=== PATIENT | female | born 1970 | race Caucasian/White ===

== ENCOUNTER 2018-06-23 22:45 | Inpatient (IN) | payer OTHER ==
--- NOTE | 2018-06-23 23:38 | PDOC ---
History of Present Illness <Lauren Pavon - Last Filed: 06/24/18 02:33> - General History Source: Patient Exam Limitations: No Limitations - History of Present Illness Travel History: No Initial Comments: 06/23/18 23:33 Best Contact: PCP: Ricky Pmhx: Renal colic Pshx: 1996:ROBERT Allergies: Oxycodone/rash FH:none Social Hx: Cigarettes/ 0 Alcohol/ 0 Drugs/0 LMP: 2000 48-year-old female presents to the emergency department complaining of dysuria, right-sided flank pain described as 4/10 dull intermittent discomfort radiating to the right groin and with independant RLQ abd pain without fever, chills, nausea/vomiting, headache, dizziness, lightheadedness, neck pain, back pains, chest pain, shortness of breath, hematuria. Symptoms started yesterday morning. Patient took Pyridium 100 mg at approximately 15 1700 hrs. this evening with some relief. <Mary Boothe - Last Filed: 06/24/18 06:34> - General Chief Complaint: Pain, Acute Stated Complaint: UTI SYX Time Seen by Provider: 06/23/18 23:08 Past History <Lauren Pavon - Last Filed: 06/24/18 02:33> - Past Medical History Anemia: No Asthma: No Cancer: No Cardiac Disorders: No CVA: No COPD: No CHF: No DVT: No Dementia: No Kidney Stones: Yes - Surgical History Abdominal Surgery: No Appendectomy: No Cardiac Surgery: No Cholecystectomy: No GI Surgery: No - Suicide/Smoking/Psychosocial Hx Smoking History: Never smoked Have you smoked in the past 12 months: No Information on smoking cessation initiated: No Hx Alcohol Use: No Drug/Substance Use Hx: No <Mary Boothe - Last Filed: 06/24/18 06:34> - Past Medical History Allergies/Adverse Reactions: Allergies Allergy/AdvReac Type Severity Reaction Status Date / Time oxycodone Allergy Verified 06/24/18 00:01 Home Medications: Ambulatory Orders Omeprazole 20 mg PO DAILY 06/24/18 Review of Systems - Review of Systems Able to Perform ROS?: Yes Comments:: 06/23/18 23:36 CONSTITUTIONAL: Absent: fever, chills, diaphoresis, generalized weakness, malaise, loss of appetite HEENT: Absent: rhinorrhea, nasal congestion, throat pain, throat swelling, difficulty swallowing, mouth swelling, ear pain, eye pain, visual Changes CARDIOVASCULAR: Absent: chest pain, loss of consciousness, palpitations, irregular heart rate, peripheral edema RESPIRATORY: Absent: cough, shortness of breath, dyspnea with exertion, orthopnea, wheezing, stridor, hemoptysis GASTROINTESTINAL: +RLQ pain Absent: abdominal distension, nausea, vomiting, diarrhea, constipation, melena, hematochezia GENITOURINARY: +dysuria, frequency, urgency, hesitancy,right flank pain Absent: hematuria,genital pain MUSCULOSKELETAL: Absent: myalgia, arthralgia, joint swelling SKIN: Absent: rash, itching, pallor HEMATOLOGIC/IMMUNOLOGIC: Absent: easy bleeding, easy bruising, lymphadenopathy, frequent infections ENDOCRINE: Absent: unexplained weight gain, unexplained weight loss, heat intolerance, cold intolerance NEUROLOGIC: Absent: headache, focal weakness or paresthesias, dizziness, unsteady gait, seizure, mental status changes, bladder or bowel incontinence PSYCHIATRIC: Absent: anxiety, depression, suicidal or homicidal ideation, hallucinations. 06/24/18 01:15 Is the patient limited Tunisian proficient: No <Mary Boothe - Last Filed: 06/24/18 06:34> *Physical Exam - Vital Signs Last Vital Signs Temp Pulse Resp BP Pulse Ox 98.1 F 72 20 114/68 100 06/23/18 22:52 06/23/18 22:52 06/23/18 22:52 06/23/18 22:52 06/23/18 22:52 <Lauren Pavon - Last Filed: 06/24/18 02:33> - Vital Signs Last Vital Signs Temp Pulse Resp BP Pulse Ox 98.1 F 72 20 114/68 100 06/23/18 22:52 06/23/18 22:52 06/23/18 22:52 06/23/18 22:52 06/23/18 22:52 - Physical Exam Comments: 06/23/18 23:36 GENERAL: Well developed, well nourished. Awake and alert. No acute distress. HEENT: Normocephalic, atraumatic. PERRLA, EOMI. No conjunctival pallor. Sclera are non- icteric. Moist mucous membranes. Oropharynx is clear. NECK: Supple. Full ROM. No JVD. Carotid pulses 2+ and symmetric, without bruits. No thyromegaly. No lymphadenopathy. CARDIOVASCULAR: Regular rate and rhythm. No murmurs, rubs, or gallops. Distal pulses are 2+ and symmetric. PULMONARY: No evidence of respiratory distress. Lungs clear to auscultation bilaterally. No wheezing, rales or rhonchi. ABDOMINAL: +RLQ pain on palp Soft.. Non-distended. No rebound or guarding. No organomegaly. Normoactive bowel sounds. MUSCULOSKELETAL Normal range of motion at all joints. No bony deformities or tenderness. No CVA tenderness. EXTREMITIES: No cyanosis. No clubbing. No edema. No calf tenderness. SKIN: Warm and dry. Normal capillary refill. No rashes. No jaundice. NEUROLOGICAL: Alert, awake, appropriate. Cranial nerves 2-12 intact. No deficits to light touch and temperature in face, upper extremities and lower extremities. No motor deficits in the in face, upper extremities and lower extremities. Normoreflexic in the upper and lower extremities. Normal speech. Toes are down- going bilaterally. Gait is normal without ataxia. PSYCHIATRIC: Cooperative. Good eye contact. Appropriate mood and affect. 06/24/18 01:15 <Mary Boothe - Last Filed: 06/24/18 06:34> Moderate Sedation - Procedure Monitoring Vital Signs: Procedure Monitoring Vital Signs Temperature 98.1 F 06/23/18 22:52 Pulse Rate 72 06/23/18 22:52 Respiratory Rate 20 06/23/18 22:52 Blood Pressure 114/68 06/23/18 22:52 O2 Sat by Pulse Oximetry (%) 100 06/23/18 22:52 <Lauren Pavon - Last Filed: 06/24/18 02:33> - Procedure Monitoring Vital Signs: Procedure Monitoring Vital Signs Temperature 98.1 F 06/23/18 22:52 Pulse Rate 72 06/23/18 22:52 Respiratory Rate 20 06/23/18 22:52 Blood Pressure 114/68 06/23/18 22:52 O2 Sat by Pulse Oximetry (%) 100 06/23/18 22:52 <Mary Boothe - Last Filed: 06/24/18 06:34> ED Treatment Course - LABORATORY CBC & Chemistry Diagram: 06/24/18 01:23 06/24/18 01:23 - ADDITIONAL ORDERS Additional order review: Laboratory Results 06/24/18 06/23/18 01:23 11:40 Sodium 141 Potassium 4.3 Chloride 108 H Carbon Dioxide 30 Anion Gap 3 L BUN 17 Creatinine 0.9 Creat Clearance w eGFR > 60 Random Glucose 110 H Calcium 9.3 Total Bilirubin 0.8 AST 19 ALT 17 Alkaline Phosphatase 91 Total Protein 7.2 Albumin 3.9 Urine Color Monet Urine Appearance Clear Urine pH 5.0 Ur Specific [place] 1.014 Urine Protein Negative Urine Glucose (UA) Negative Urine Ketones Negative Urine Blood Negative Urine Nitrite Positive Urine Bilirubin Negative Urine Urobilinogen 4.0 e.u/dl H Ur Leukocyte Esterase Negative Urine WBC (Auto) 2 Urine RBC (Auto) <1 Ur Epithelial Cells Rare Urine Bacteria Moderate Urine Mucus Rare Urine HCG, Qual Negative 06/24/18 01:23 RBC 4.06 MCV 96.3 H MCHC 34.9 RDW 13.3 MPV 8.5 Neutrophils % 41.2 L Lymphocytes % 47.3 H Monocytes % 8.9 Eosinophils % 2.1 Basophils % 0.5 <Lauren Pavon - Last Filed: 06/24/18 02:33> - LABORATORY CBC & Chemistry Diagram: 06/24/18 01:23 06/24/18 01:23 - RADIOLOGY Radiograph Interpretation: 06/24/18 01:15 CAT scan abdomen and pelvis with IV contrast demonstrates some high density in the distal appendiceal lumen suggesting retained gastrointestinal contrast from previous imaging study or possibly appendicoliths The appendix is not distended , thickened or complaints. <Mary Boothe - Last Filed: 06/24/18 06:34> Progress Note - Progress Note Progress Note: 0006hrs: Called Dr. Greco /gen surg filtration supervisor [phone] 0633hrs: Spoke to Dr. Lee <Mary Boothe - Last Filed: 06/24/18 06:34> Medical Decision Making - Medical Decision Making 06/24/18 02:33 Patient Name: ANNE OCHOA THIS IS A PRELIMINARY REPORT FROM [facility] DATE OF SERVICE: 2018-06-24 00:37:44 IMAGES: [id number] EXAM: CT abdomen and pelvis without contrast HISTORY: Right sided flank pain COMPARISON: None. FINDINGS: Abdomen Liver: Normal Spleen: Normal Pancreas: Normal CONFIDENTIALITY NOTICE: This information is intended only for the use of the recipient(s) named above. If you are not the intended recipient, or a person responsible for delivering it to the intended recipient, you are hereby notified that any disclosure, copying, distribution or use of any of the information contained in or attached to this transmission is STRICTLY PROHIBITED. If you have received this transmission in error, please immediately notify [facility] Operator and destroy the original transmission and its attachments without saving them in any manner [address] [facility] [address] [place] [address] Phone: [phone] ([phone]) Fax: Email: [email or web address] Web: [email or web address] Patient Information: : 1970 Order Type: Preliminary Name: GABRIELA RODRÍGUEZ Sex: F Study Description: CT ABDOMEN AND PELVIS Modality: CT Location: [facility] Referring Physician: BEAU ORDONEZ Gallbladder: Normal Stomach: Normal Small bowel: Normal Large bowel: Normal Appendix: There is some high density in the distal appendiceal lumen suggesting retained gastrointestinal contrast from previous imaging study, or possibly appendicoliths. The appendix is not distended, thickening, or inflamed Adrenals:Normal Kidneys: Normal Vascular: Normal Lymphatic: Normal Peritoneal: No free peritoneal air or fluid Pelvis: Uterus: normal Rectum: Normal Bladder: Normal The inferior thorax: Normal General: Skeletal: Normal Abdominal wall: Normal IMPRESSION: No acute findings. Hypodensity in the appendix suggests retained gastrointestinal contrast, or a series of appendicoliths. The distal appendix is not distended thickened or inflamed <Lauren Pavon - Last Filed: 06/24/18 02:33> *DC/Admit/Observation/Transfer <Lauren Pavon - Last Filed: 06/24/18 02:33> - Discharge Dispostion Decision to Admit order: Yes <Mary Boothe - Last Filed: 06/24/18 06:34> Diagnosis at time of Disposition: Appendicolith UTI (urinary tract infection) Qualifiers: Urinary tract infection type: acute cystitis Hematuria presence: without hematuria Qualified Code(s): N30.00 - Acute cystitis without hematuria - Discharge Dispostion Condition at time of disposition: Stable
[2018-06-23 23:59] LABS: HCG,QUALITATIVE URINE Negative
[2018-06-24 00:19] LABS: URINE APPEARANCE CLEAR; URINE BILIRUBIN NEGATIVE (<2.0 mg/dL); URINE COLOR AMBER; URINE GLUCOSE (UA) NEGATIVE (NEGATIVE); URINE KETONE NEGATIVE (NEGATIVE); URINE LEUK ESTERASE NEGATIVE (NEGATIVE); URINE NITRITE POSITIVE (NEGATIVE); URINE PROTEIN NEGATIVE (NEGATIVE); URINE UROBILINOGEN 4.0 E.U/dl mg/dL (0.2-1.0)
[2018-06-24 00:22] LABS: EPI CELLS RARE /HPF (FEW); URINE BACTERIA MODERATE /hpf (NONE SEEN); URINE MUCUS RARE
[2018-06-24 01:34] LABS: BASO % 0.5 % (0-2.0); EOS % 2.1 % (0-4.5); HEMATOCRIT 39.1 % (32.4-45.2); HEMOGLOBIN 13.7 GM/dL (10.7-15.3); LYMPH % 47.3 % (8-40); MCH 33.6 pg (25.7-33.7); MCHC 34.9 g/dl (32.0-36.0); MEAN CELL VOLUME 96.3 fl (80-96); MEAN PLT VOLUME 8.5 fl (7.5-11.1); MONO % 8.9 % (3.8-10.2); NEUT % 41.2 % (42.8-82.8); PLATELET COUNT 189 K/MM3 (134-434); RBC 4.06 M/mm3 (3.60-5.2); RDW 13.3 % (11.6-15.6); WHITE BLOOD COUNT 5.8 K/mm3 (4.0-10.0)
[2018-06-24 01:55] LABS: ALBUMIN 3.9 g/dl (3.4-5.0); ALK PHOS 91 U/L (45-117); ANION GAP 3 MMOL/L (8-16); BILIRUBIN,TOTAL 0.8 mg/dL (0.2-1); BLOOD UREA NITROGEN 17 mg/dL (7-18); CALCIUM 9.3 mg/dL (8.5-10.1); CHLORIDE 108 mmol/L (98-107); CO2 30 mmol/L (21-32); CREATININE 0.9 mg/dL (0.55-1.3); GLUCOSE,RANDOM 110 mg/dL (74-106); POTASSIUM 4.3 mmol/L (3.5-5.1); SGOT/AST 19 U/L (15-37); SGPT/ALT 17 U/L (13-61); SODIUM 141 mmol/L (136-145); TOT PROT 7.2 g/dl (6.4-8.2)
[2018-06-24] MEDS ORDERED: CEFTRIAXONE 1 GM in DEXTROSE 5%-WATER - 50 ML IVPB ONE (02:34)
[2018-06-24] MEDS ORDERED: CEFTRIAXONE 1 GM/50 ML BAG ONE (02:42)
[2018-06-24 05:38] VITALS: BMI 34.2
[2018-06-24] MEDS ORDERED: ACETAMINOPHEN 325 MG TABLET (FP) PO PRN (07:23)
[2018-06-24] MEDS ORDERED: LACTATED RINGERS SOLUTION 1,000 ML/1,000 ML INFUS.BAG IV SCH (07:30)
--- NOTE | 2018-06-24 07:32 | HP ---
CHIEF COMPLAINT: abdominal pain PCP: none HISTORY OF PRESENT ILLNESS: 48 year old female with a history of GERD and kidney stones presents to the hospital with 3 days of right flank and RLQ abdominal pain. Patient reports that the back pain started Remberto in her right flank and radiated to the front. States that she felt similar pain during her prior kidney stones (last was 2 years ago). States that the RLQ abdominal pain started yesterday, reports it as a stabbing 6/10 in severity that radiates to her right groin and suprapubic region. States that she has not experienced this particular pain in the past. Reports some nausea but no vomiting, fevers, chills, diarrhea, chest pain, shortness of breath. ER course was notable for: (1) CT no contrast notable for possible appendicolith and no kidney stones (2) (3) Recent Travel: denies PAST MEDICAL HISTORY: GERD PAST SURGICAL HISTORY: Hysterectomy when patient was 29 Social History: Smoking: denies Alcohol: denies Drugs: denies Family History: mother with HTN/HLD, father without medical problems Allergies oxycodone Allergy (Verified 06/24/18 00:01) - REACTION: RASH HOME MEDICATIONS: Home Medications Medication Instructions Recorded Omeprazole 40 mg PO DAILY 06/24/18 REVIEW OF SYSTEMS CONSTITUTIONAL: Absent: fever, chills, diaphoresis, generalized weakness, malaise, loss of appetite, weight change HEENT: Absent: rhinorrhea, nasal congestion, throat pain, throat swelling, difficulty swallowing, mouth swelling, ear pain, eye pain, visual changes CARDIOVASCULAR: Absent: chest pain, syncope, palpitations, irregular heart rate, lightheadedness , peripheral edema RESPIRATORY: Absent: cough, shortness of breath, dyspnea with exertion, orthopnea, wheezing, stridor, hemoptysis GASTROINTESTINAL:abdominal pain, nausea Absent: abdominal distension, vomiting, diarrhea, constipation, melena, hematochezia GENITOURINARY: Absent: dysuria, frequency, urgency, hesitancy, hematuria, flank pain, genital pain MUSCULOSKELETAL: Absent: myalgia, arthralgia, joint swelling, back pain, neck pain SKIN: Absent: rash, itching, pallor HEMATOLOGIC/IMMUNOLOGIC: Absent: easy bleeding, easy bruising, lymphadenopathy, frequent infections ENDOCRINE: Absent: unexplained weight gain, unexplained weight loss, heat intolerance, cold intolerance NEUROLOGIC: Absent: headache, focal weakness or paresthesias, dizziness, unsteady gait, seizure, mental status changes, bladder or bowel incontinence PSYCHIATRIC: Absent: anxiety, depression, suicidal or homicidal ideation, hallucinations. PHYSICAL EXAMINATION Vital Signs - 24 hr 06/23/18 06/24/18 06/24/18 22:52 01:12 02:53 Temperature 98.1 F 97.9 F Pulse Rate 72 70 Respiratory 20 20 Rate Blood Pressure 114/68 126/65 O2 Sat by Pulse 100 100 Oximetry (%) GENERAL: A&Ox3, no acute distress EYES: PERRLA, EOMI ENT: Moist mucus membranes NECK: No JVD LUNGS: CTA, no wheezes HEART: RRR, no murmurs ABDOMEN: Soft, mildly tender to palpation in the RLQ, BS present MUSCULOSKELETAL: No CVA Tenderness EXTREMITIES: 2+ pulses, no edema. NEUROLOGICAL: Cranial nerves II-XII intact. Laboratory Results - last 24 hr 06/23/18 06/24/18 06/24/18 11:40 01:23 01:23 WBC 5.8 RBC 4.06 Hgb 13.7 Hct 39.1 MCV 96.3 H MCH 33.6 MCHC 34.9 RDW 13.3 Plt Count 189 MPV 8.5 Absolute Neuts (auto) 2.4 Neutrophils % 41.2 L Lymphocytes % 47.3 H Monocytes % 8.9 Eosinophils % 2.1 Basophils % 0.5 Nucleated RBC % 0 Sodium 141 Potassium 4.3 Chloride 108 H Carbon Dioxide 30 Anion Gap 3 L BUN 17 Creatinine 0.9 Creat Clearance w eGFR > 60 Random Glucose 110 H Calcium 9.3 Total Bilirubin 0.8 AST 19 ALT 17 Alkaline Phosphatase 91 Total Protein 7.2 Albumin 3.9 Urine Color Monet Urine Appearance Clear Urine pH 5.0 Ur Specific [place] 1.014 Urine Protein Negative Urine Glucose (UA) Negative Urine Ketones Negative Urine Blood Negative Urine Nitrite Positive Urine Bilirubin Negative Urine Urobilinogen 4.0 e.u/dl H Ur Leukocyte Esterase Negative Urine WBC (Auto) 2 Urine RBC (Auto) <1 Ur Epithelial Cells Rare Urine Bacteria Moderate Urine Mucus Rare Urine HCG, Qual Negative ASSESSMENT/PLAN: 48 year old female with a history of GERD and kidney stones presents to the hospital with 3 days of right flank and RLQ abdominal pain and is admitted for evaluation of possible appendicolith #Abdominal pain: possibly secondary to appendiceal stone or passed renal stone, less likely due to urinary tract infection. Due to the fact that patient's flank pain improved and no renal stone seen on CT, pain could have originated from a passed renal stone, but will evaluate the possible appendicolith seen on initial CT -surgery recommendations from Dr. Jain noted - will get CT abdomen/pelvis with contrast -keep NPO except medications for now until surgical evaluation -continue omeprazole 40mg for GERD -tylenol for pain #FEN -LR @ 100cc/hr -replete lytes as necessary -NPO except meds #Prophylaxis -SCDs pending surgical evaluation #Disposition -continue to monitor on med surg, dispo will depend on surgery recommendations, anticipate 1-2 days if no surgical intervention Visit type - Emergency Visit Emergency Visit: Yes ED Registration Date: 06/24/18 Care time: The patient presented to the Emergency Department on the above date and was hospitalized for further evaluation of their emergent condition. - New Patient This patient is new to me today: Yes Date on this admission: 06/24/18 - Critical Care Critical Care patient: No
[2018-06-24 09:59] VITALS: BP 114/64; PULSE 61; TEMP 97.7
[2018-06-24] MEDS ORDERED: PANTOPRAZOLE 20 MG TABLET (FP) PO SCH (10:00)
[2018-06-24] MEDS ORDERED: FLU VACCINE QUAD 60 MCG/0.5 ML (MDV 18-19) IM ONE (10:00)
[2018-06-24 11:23] LABS: HEMATOCRIT 38.6 % (32.4-45.2); HEMOGLOBIN 13.3 GM/dL (10.7-15.3); MCH 33.4 pg (25.7-33.7); MCHC 34.5 g/dl (32.0-36.0); MEAN CELL VOLUME 96.8 fl (80-96); MEAN PLT VOLUME 9.1 fl (7.5-11.1); PLATELET COUNT 180 K/MM3 (134-434); RBC 3.98 M/mm3 (3.60-5.2); RDW 13.3 % (11.6-15.6)
[2018-06-24 11:42] LABS: ALBUMIN 3.7 g/dl (3.4-5.0); ALK PHOS 84 U/L (45-117); ANION GAP 6 MMOL/L (8-16); BILIRUBIN,TOTAL 0.8 mg/dL (0.2-1); BLOOD UREA NITROGEN 15 mg/dL (7-18); CALCIUM 9.6 mg/dL (8.5-10.1); CHLORIDE 109 mmol/L (98-107); CO2 27 mmol/L (21-32); CREATININE 0.8 mg/dL (0.55-1.3); GLUCOSE,RANDOM 82 mg/dL (74-106); POTASSIUM 4.2 mmol/L (3.5-5.1); SGOT/AST 15 U/L (15-37); SGPT/ALT 18 U/L (13-61); SODIUM 142 mmol/L (136-145); TOT PROT 6.6 g/dl (6.4-8.2)
--- NOTE | 2018-06-24 11:46 | PN ---
Teaching Attending Note Name of Resident: Jesse Boland ATTENDING PHYSICIAN STATEMENT I saw and evaluated the patient. I reviewed the resident's note and discussed the case with the resident. I agree with the resident's findings and plan as documented. SUBJECTIVE: Patient was admitted for have RLQ pain for possible appendicitis, Ct abdomen and Renal US ordered. No fever or chills, no shortness of breath. OBJECTIVE: Vital Signs Temperature 97.7 F 06/24/18 09:58 Pulse Rate 61 06/24/18 09:58 Respiratory Rate 20 06/24/18 09:58 Blood Pressure 114/64 06/24/18 09:58 O2 Sat by Pulse Oximetry (%) 100 06/24/18 09:00 GENERAL: A&Ox3, no acute distress EYES: PERRLA, EOMI ENT: Moist mucus membranes NECK: No JVD LUNGS: CTA, no wheezes HEART: RRR, no murmurs ABDOMEN: Soft,NT palpation in the RLQ, but mild tenderness on the mid- superpubic area. BS present MUSCULOSKELETAL: No CVA Tenderness EXTREMITIES: 2+ pulses, no edema. NEUROLOGICAL: Cranial nerves II-XII intact. CBCD WBC 4.0 K/mm3 (4.0-10.0) 06/24/18 10:19 RBC 3.98 M/mm3 (3.60-5.2) 06/24/18 10:19 Hgb 13.3 GM/dL (10.7-15.3) 06/24/18 10:19 Hct 38.6 % (32.4-45.2) 06/24/18 10:19 MCV 96.8 fl (80-96) H 06/24/18 10:19 MCHC 34.5 g/dl (32.0-36.0) 06/24/18 10:19 RDW 13.3 % (11.6-15.6) 06/24/18 10:19 Plt Count 180 K/MM3 (134-434) 06/24/18 10:19 MPV 9.1 fl (7.5-11.1) 06/24/18 10:19 CMP Sodium 142 mmol/L (136-145) 06/24/18 10:19 Potassium 4.2 mmol/L (3.5-5.1) 06/24/18 10:19 Chloride 109 mmol/L (98-107) H 06/24/18 10:19 Carbon Dioxide 27 mmol/L (21-32) 06/24/18 10:19 Anion Gap 6 MMOL/L (8-16) L 06/24/18 10:19 BUN 15 mg/dL (7-18) 06/24/18 10:19 Creatinine 0.8 mg/dL (0.55-1.3) 06/24/18 10:19 Creat Clearance w eGFR > 60 (>60) 06/24/18 10:19 Random Glucose 82 mg/dL (74-106) 06/24/18 10:19 Calcium 9.6 mg/dL (8.5-10.1) 06/24/18 10:19 Total Bilirubin 0.8 mg/dL (0.2-1) 06/24/18 10:19 AST 15 U/L (15-37) 06/24/18 10:19 ALT 18 U/L (13-61) 06/24/18 10:19 Alkaline Phosphatase 84 U/L (45-117) 06/24/18 10:19 Total Protein 6.6 g/dl (6.4-8.2) 06/24/18 10:19 Albumin 3.7 g/dl (3.4-5.0) 06/24/18 10:19 Current Medications Generic Name Dose Route Start Last Admin Trade Name Freq PRN Reason Stop Dose Admin Acetaminophen 650 mg 06/24/18 07:23 Tylenol - PO Q4H PRN PAIN LEVEL 1-5 Lactated Ringer's 1,000 ml in 1,000 mls @ 100 mls/hr 06/24/18 07:30 06/24/18 07:44 Lactated Ringers Solution IV 06/25/18 17:29 100 mls/hr ASDIR AIMEE Administration Pantoprazole Sodium 20 mg 06/24/18 10:00 06/24/18 09:42 Protonix - PO 20 mg DAILY AIMEE Administration Home Medications Medication Instructions Recorded Omeprazole 20 mg PO DAILY 06/24/18 ASSESSMENT AND PLAN: Patient is a 48 year old female with a history of GERD and kidney stones presents to the hospital with 3 days of right flank and RLQ abdominal pain and is admitted for evaluation of possible appendicolith. #Abdominal pain: due to appendicolith , , repeated the CT scan which reported patent appendicitis without any inflammation. relayed the report to the Surgeon esthela Duncan to discharge the patient as per surgeon. will feed the patient , also has suprapubic tenderness with hx of UTI, will discharge the patient on ceftin and follow the urine Cx , and give her call if positive urinary culture. Patient's phone # [phone] and US is negative.
[2018-06-24 13:43] LABS: INR 1.13 (0.83-1.09); PROTHROMBIN TIME (PATIENT) 13.3 SEC (9.7-13.0)
--- NOTE | 2018-06-24 15:26 | DS ---
Physical Exam: SUBJECTIVE: Patient seen and examined at bedside. no acute complaints. OBJECTIVE: Vital Signs Period Temp Pulse Resp BP Sys/Romeo Pulse Ox Last 24 Hr 97.7 F-98.1 F 61-72 20-20 114-126/64-68 100-100 PHYSICAL EXAM GENERAL: A&Ox3, no acute distress EYES: PERRLA, EOMI ENT: Moist mucus membranes NECK: No JVD LUNGS: CTA, no wheezes HEART: RRR, no murmurs ABDOMEN: Soft, mildly tender to palpation in the RLQ, BS present MUSCULOSKELETAL: No CVA Tenderness EXTREMITIES: 2+ pulses, no edema. NEUROLOGICAL: Cranial nerves II-XII intact. LABS Laboratory Results - last 24 hr 06/23/18 06/24/18 06/24/18 11:40 01:23 01:23 WBC 5.8 RBC 4.06 Hgb 13.7 Hct 39.1 MCV 96.3 H MCH 33.6 MCHC 34.9 RDW 13.3 Plt Count 189 MPV 8.5 Absolute Neuts (auto) 2.4 Neutrophils % 41.2 L Lymphocytes % 47.3 H Monocytes % 8.9 Eosinophils % 2.1 Basophils % 0.5 Nucleated RBC % 0 PT with INR INR Sodium 141 Potassium 4.3 Chloride 108 H Carbon Dioxide 30 Anion Gap 3 L BUN 17 Creatinine 0.9 Creat Clearance w eGFR > 60 Random Glucose 110 H Calcium 9.3 Total Bilirubin 0.8 AST 19 ALT 17 Alkaline Phosphatase 91 Total Protein 7.2 Albumin 3.9 Urine Color Monet Urine Appearance Clear Urine pH 5.0 Ur Specific [place] 1.014 Urine Protein Negative Urine Glucose (UA) Negative Urine Ketones Negative Urine Blood Negative Urine Nitrite Positive Urine Bilirubin Negative Urine Urobilinogen 4.0 e.u/dl H Ur Leukocyte Esterase Negative Urine WBC (Auto) 2 Urine RBC (Auto) <1 Ur Epithelial Cells Rare Urine Bacteria Moderate Urine Mucus Rare Urine HCG, Qual Negative 06/24/18 06/24/18 06/24/18 10:19 10:19 12:41 WBC 4.0 RBC 3.98 Hgb 13.3 Hct 38.6 MCV 96.8 H MCH 33.4 MCHC 34.5 RDW 13.3 Plt Count 180 MPV 9.1 Absolute Neuts (auto) Neutrophils % Lymphocytes % Monocytes % Eosinophils % Basophils % Nucleated RBC % PT with INR 13.30 H INR 1.13 H Sodium 142 Potassium 4.2 Chloride 109 H Carbon Dioxide 27 Anion Gap 6 L BUN 15 Creatinine 0.8 Creat Clearance w eGFR > 60 Random Glucose 82 Calcium 9.6 Total Bilirubin 0.8 AST 15 ALT 18 Alkaline Phosphatase 84 Total Protein 6.6 Albumin 3.7 Urine Color Urine Appearance Urine pH Ur Specific [place] Urine Protein Urine Glucose (UA) Urine Ketones Urine Blood Urine Nitrite Urine Bilirubin Urine Urobilinogen Ur Leukocyte Esterase Urine WBC (Auto) Urine RBC (Auto) Ur Epithelial Cells Urine Bacteria Urine Mucus Urine HCG, Qual HOSPITAL COURSE: Date of Admission:06/24/18 48 year old female with a history of GERD and kidney stones presents to the hospital with 3 days of right flank and RLQ abdominal pain. Patient reports that the back pain started Remberto in her right flank and radiated to the front. States that she felt similar pain during her prior kidney stones (last was 2 years ago). Stated that the RLQ abdominal pain started yesterday, reports it as a stabbing 6/10 in severity that radiates to her right groin and suprapubic region. States that she has not experienced this particular pain in the past. Reports some nausea but no vomiting, fevers, chills, diarrhea, chest pain, shortness of breath. In ED patient initially received CT abdomen pelvis w/o contrast which showed possible appendicolith but no renal stones. Repeat CT with contrast did not reveal renal stones or any signs of appendicitis. US kidneys was negative for any pathology. Patient's UA was positive for nitrites and moderate bacteria in the urine, but negative leukocyte esterase and 2 WBCs. Patient was seen by surgery, who did not believe this patient had a surgical abdomen. Patient was re-evaluated that afternoon and she had clinically improved. She was discharged home on 5 days of ceftin to treat possible UTI. Date of Discharge: 06/24/18 Minutes to complete discharge: 35 Discharge Summary Reason For Visit: APPENDICOLITH,URINARY TRACT INFECTION Current Active Problems Appendicolith (Acute) UTI (urinary tract infection) (Acute) Condition: Stable - Instructions Diet, Activity, Other Instructions: You were admitted to the hospital for the treatment of back and abdominal pain. CAT scan done in the hospital did not show signs of appendicitis Ultrasound of your kidneys did not show signs of kidney stone It is possible that your pain was due to a urinary tract infection Medical Recommendations Please take the antibiotic Keflex twice a day for 5 days Continue your home medications as prescribed before Please eat a diet low in fat and carbohydrates Exercise regularly Referrals Please make an appointment with your primary care physician within 1 week of discharge Referrals: ON STAFF,NOT [Primary Care Provider] - 1 Week Disposition: HOME - Home Medications Comprehensive Discharge Medication List: Ambulatory Orders Acetaminophen [Tylenol .Regular Strength -] 650 mg PO Q4H PRN tablet 06/24/18 Cefuroxime Axetil [Ceftin -] 250 mg PO BID #10 tablet 06/24/18 Omeprazole 20 mg PO DAILY 06/24/18 This patient is new to me today: Yes Date on this admission: 06/24/18 Emergency Visit: No Critical Care patient: No - Discharge Referral [facility] No
== END 2018-06-24 15:58 | disposition home or self-care (01) | DRG 463 ==
LOC: JER 22:45 → JERBED 06-24 02:53 → J8W 06-24 04:50
PROVIDERS: ADMIT Internal Medicine; ATTEND Internal Medicine
DX: N39.0 Urinary tract infection, site not specified (principal); R10.31 Right lower quadrant pain; K21.9 Gastro-esophageal reflux disease without esophagitis
CPT/HCPCS: 36415; 74176-TC; 74177-TC; 76775-TC; 80053; 81003; 81015; 84703; 85025; 85027; 85610; 87086; 87186; 90688; 99284-25; G0008; Q9967